=== PATIENT | male | born 1980 | race Caucasian/White ===

== ENCOUNTER 2019-04-10 17:04 | Emergency (ER) | payer OTHER ==
[2019-04-10 17:16] VITALS: BP 129/90
[2019-04-10] MEDS ORDERED: HYDROcod/ACETAM 5/325 MG TABLET PO STA (17:22)
--- NOTE | 2019-04-10 17:25 | ED Physician Documentation ---
PD HPI LOWER EXT INJURY - Stated complaint Stated Complaint: R CALF INJ - Chief complaint Chief Complaint: Ext Problem - History obtained from History obtained from: Patient - History of Present Illness PD HPI LOW EXT INJURY LOCATION: Right (Playing tennis today and felt a pop in the posterior right ankle while running. Now cannot walk except for shuffling. Pain is moderate to severe. No other injuries. No recent antibiotics.) Review of Systems Constitutional: reports: Reviewed and negative Cardiac: reports: Reviewed and negative Respiratory: reports: Reviewed and negative PD PAST MEDICAL HISTORY - Past Medical History Past Medical History: No - Past Surgical History Past Surgical History: Yes - Present Medications Home Medications: Ambulatory Orders Medication Instructions Recorded Confirmed Hydrocodone/Acetaminophen 1 - 2 each PO Q6H PRN #14 tablet 04/10/19 [Hydrocodon-Acetaminophen 5-325] Knee Scooter 1 unit TD ONCE #1 04/10/19 - Allergies Allergies/Adverse Reactions: Allergies Allergy/AdvReac Type Severity Reaction Status Date / Time No Known Drug Allergies Allergy Verified 04/10/19 17:12 - Social History Does the pt smoke?: No Smoking Status: Never smoker PD ED PE NORMAL - Vitals Vital signs reviewed: Yes - General General: Alert and oriented X 3, No acute distress - Extremities Extremities: Other (The calf and the calcaneus are nontender, he does not have any action with Felton's test. He has a obvious palpable defect in the right Achilles tendon.) - Neuro Neuro: Alert and oriented X 3, Normal speech Results - Vitals Vitals: Vital Signs - 24 hr 04/10/19 17:12 Temperature 36.7 C Heart Rate 72 Respiratory 19 Rate Blood Pressure 129/90 H O2 Saturation 100 Oxygen O2 Source Room air Procedures - Splint (location) R leg Splint applied by: Tech Type of splint: Fiberglass, Short leg, Posterior, Other (in slight plantarflexion) Other: Patient tolerated well, No complications, Neurovascular intact, Crutches provided Departure - Departure Disposition: 01 Home, Self Care Clinical Impression: Achilles rupture, right Qualifiers: Encounter type: initial encounter Qualified Code(s): S86.011A - Strain of right Achilles tendon, initial encounter Condition: Good Record reviewed to determine appropriate education?: Yes Health Concerns: Right leg injury, clinical right achilles tendon rupture Plan of Treatment: Splint in flexion. Followup with Dr Idjadi in clinic, non weight bearing. Care Goals: Improve function. Assessment: as above Instructions: ED Tendon Rupture Achilles Follow-Up: Yordy Hair MD [Provider Admit Priv/Credential] - Prescriptions: Hydrocodone/Acetaminophen [Hydrocodon-Acetaminophen 5-325] 1 - 2 each PO Q6H PRN #14 tablet PRN Reason: pain Knee Scooter 1 unit TD ONCE #1 Forms: Activity restrictions
[2019-04-10] MEDS ORDERED: HYDROcod/ACET 5/325 Prepack 4 PO STA (18:06)
== END 2019-04-10 18:21 | disposition home or self-care (01) ==
LOC: ED 17:04
DX: S86.011A Strain of right Achilles tendon, initial encounter (principal); X58.XXXA Exposure to other specified factors, initial encounter; Y93.59 Activity, other involving other sports and athletics played individually
CPT/HCPCS: 29515; 99283; A9270

== ENCOUNTER 2019-04-17 11:02 | Day surgery (SDC) | payer OTHER ==
[~2019-04-17 11:02] MED LIST: BRIMONIDINE 0.2% OPHTH DROPS 5 ML ONE; BSS/LIDOCAINE/EPINEPHRINE 1 ML SYRINGE ONE; TIMOLOL 0.5% OPHTH DROPS ONE; TRIAMCIN/MOXIFLOX OPHTHALMIC 0.6 ML VIAL IO ONE; VANCOMYCIN OPHTHALMI 8MG/0.8ML 8 MG/0.8 ML SYRINGE IO ONE
[2019-04-17] MEDS ORDERED: CEFAZOLIN SODIUM IN 0.9 % NACL 2 GM/100 ML BAG IV ONE (11:39)
[2019-04-17] MEDS ORDERED: LACTATED RINGERS 1,000 ML IV ONE ×2 (11:41→13:09)
--- NOTE | 2019-04-17 11:54 | ANESTHESIA ---
Pre-Anesthesia VS, & Labs - Diagnosis right achilles tendon rupture - Procedure open repair of right achilles tendon rupture Vital Signs: Temp Pulse Resp BP Pulse Ox 36.4 C L 76 18 118/70 100 04/17/19 11:05 04/17/19 11:05 04/17/19 11:05 04/17/19 11:05 04/17/19 11:05 Height 6 ft 3 in Weight (kg) 92.2 kg Body Mass Index 25.0 - NPO >8 hours Home Medications and Allergies Home Medications: Ambulatory Orders Fluticasone [Flonase] 1 sprays JONATHAN DAILY 04/15/19 oxyCODONE/ACET 5/325 [Percocet 5 mg/325 mg] 1 - 2 each PO Q4-6H 04/15/19 Fluticasone [Flonase] 1 sprays JONATHAN DAILY 04/15/19 oxyCODONE/ACET 5/325 [Percocet 5 mg/325 mg] 1 - 2 each PO Q4-6H 04/15/19 Allergies/Adverse Reactions: Allergies Allergy/AdvReac Type Severity Reaction Status Date / Time No Known Drug Allergies Allergy Verified 04/10/19 17:12 Anes History & Medical History - Anesthetic History Family history of Anesthesia Complications: Denies Family history of Malignant Hyperthermia: Denies - Medical History Cardiovascular: reports: None Pulmonary: reports: None Gastrointestinal: reports: None Urinary: reports: None Neuro: reports: None Musculoskeletal: reports: None Endocrine/Autoimmune: reports: None Blood Disorders: reports: None Skin: reports: None Smoking Status: Never smoker Psychosocial: reports: No issues indicated Exam General: Alert, Oriented x3, Cooperative, No acute distress Dental: WNL Mouth Openin Fingerbreadth Neck Mobility: Normal Mallampati classification: II Thyromental Distance: greater than 6 cm Respiratory: Lungs clear, Normal breath sounds, No respiratory distress, No accessory muscle use Cardiovascular: Regular rate, Normal S1, Normal S2, No murmurs Mental/Cognitive Status: Alert/Oriented X3, Normal for patient Plan Anesthesia Type: General, Popliteal Block (right) Consent for Procedure(s) Verified and Reviewed: Yes Code Status: Attempt Resuscitation ASA classification: 1-Healthy patient Is this case an emergency?: No
[2019-04-17] MEDS ORDERED: MIDAZOLAM 2 MG/2 ML VIAL ONE (12:08)
[2019-04-17] MEDS ORDERED: DEXAMETHASONE 4 MG/ML VIAL ONE (12:11)
[2019-04-17] MEDS ORDERED: ONDANSETRON 4 MG/2 ML VIAL IVP ONE (12:30)
[2019-04-17] MEDS ORDERED: DEXAMETHASONE 4 MG/ML VIAL IVP ONE (12:30)
[2019-04-17] MEDS ORDERED: PROPOFOL 200 MG/20 ML VIAL IVP ONE (12:30)
[2019-04-17] MEDS ORDERED: fentaNYL 250 MCG/5 ML VIAL IVP ONE (12:30)
[2019-04-17] MEDS ORDERED: LIDOCAINE-MPF 2% 5 ML VIAL IM ONE (12:30)
--- NOTE | 2019-04-17 12:45 | ANESTHESIA PROCEDURE NOTE ---
Diagnosis: Right ruptured achilles tendon Procedure: Right popliteal nerve block Consent for Procedure(s) Verified and Reviewed: Yes Height and Weight: Height 6 ft 3 in Weight (kg) 92.2 kg Body Mass Index 25.0 Vital Signs: Temp Pulse Resp BP Pulse Ox 36.4 C L 76 18 118/70 100 04/17/19 11:05 04/17/19 11:05 04/17/19 11:05 04/17/19 11:05 04/17/19 11:05 Allergies No Known Drug Allergies Allergy (Verified 04/10/19 17:12) Requesting Provider: Dr. Mcgee Location: Right Leg ASA classification: 1-Healthy patient Is this case an emergency?: No Anes. Monitoring and Equipment: Non-invasive BP, Pulse oximetery, Sterile prep and drape Anes. Procedure Start Time: 12:05 Anes. Procedure Stop Time: 12:15 Procedure Notes: Patient was placed in a prone position and right posterior knee was prepped with chloroprep. Timeout completed. The sciatic nerve was identified under ultrasound and a 22G stimiplex needle was advanced. Twitch monitor was used with loss of dorsal flexion at 0.4 mA. A total of 30ml of 0.5% ropivicaine with 4mg decadron was injected around the nerve with adequate spread noted. Patient tolerated the procedure well. Full evaluation is pending.
[2019-04-17] MEDS ORDERED: BUPIVACAINE 0.25%-EPI 1:200000 PF 30 ML VIAL ONE (13:08)
[2019-04-17] MEDS ORDERED: BUPIVACAINE 0.25%-EPI 1:200000 PF 30 ML VIAL SUBQ ONE ×2 (13:08)
[2019-04-17] MEDS ORDERED: ACETAMINOPHEN 1,000 MG/100 ML 100 ML IV PRN (13:50)
[2019-04-17] MEDS ORDERED: MORPHINE 2 MG/ML CARPUJECT IVP PRN (13:50)
[2019-04-17] MEDS ORDERED: SODIUM CHLORIDE FLUSH 0.9% 10 ML SYRINGE IVP PRN (13:50)
[2019-04-17] MEDS ORDERED: ACETAMINOPHEN 325 MG TABLET PO PRN (13:50)
[2019-04-17] MEDS ORDERED: ONDANSETRON 4 MG/2 ML VIAL IVP PRN (13:50)
[2019-04-17] MEDS ORDERED: PROCHLORPERAZINE 10 MG/2 ML VIAL IVP PRN (13:50)
--- NOTE | 2019-04-17 13:57 | OPERATIVE REPORT ---
Operative Report - General Procedure Date: 04/17/19 Planned Procedure: Open repair of right Achilles tendon rupture Pre-Op Diagnosis: Acute right Achilles tendon rupture Procedure Performed: Open repair of right Achilles tendon rupture Post Op Diagnosis: Same - Procedure Note Primary Surgeon: Manuel Mcgee MD Anesthesia Provider: Selena Ramos CRNA Anesthesia Technique: Regional block IV Fluids (mL): 500 Estimated Blood Loss (mL): 25 Complications: None
[2019-04-17] MEDS ORDERED: ACETAMINOPHEN 1,000 MG/100 ML 100 ML IV ONE (14:28)
[2019-04-17] MEDS ORDERED: KETOROLAC 15 MG/ML VIAL ONE (14:28)
--- NOTE | 2019-04-17 14:34 | OPERATIVE REPORT ---
DATE OF SERVICE: 04/17/2019 Physician: Dion Mcgee MD PREOPERATIVE DIAGNOSIS: Acutely ruptured right Achilles tendon. POSTOPERATIVE DIAGNOSIS: Acutely ruptured right Achilles tendon. PROCEDURE PERFORMED: Open repair of a right ruptured Achilles tendon. SURGEON: Dion Mcgee MD ANESTHESIA: General with a popliteal nerve block. DESCRIPTION OF PROCEDURE: Patient was taken to the operating room on the afternoon of 04/17/2019, wh ere he was given a popliteal nerve peripheral block. He was then placed in light sedation for the pr ocedure. He remained positioned supine. His leg was then prepped and draped in the usual fashion fo r our procedure. Putting the right leg in a crisscross, cross-legged position, we were able to acces s the medial aspect of his distal calf in the vicinity of his posterior ankle. A longitudinal skin i ncision was then made a fingerbreadth anterior to the Achilles tendon in the vicinity of his palpable defect in his Achilles tendon. After incising the incision, we noted that the tendon sheath appeare d to be intact overlying his Achilles tendon. This was then sharply incised and we were then able to expose the ruptured Achilles tendon. At this point, we then proceeded to put a zigzag [place] type stitch with 0 Ethibond, using a swedged-on needle that came with the suture, as well as a curved free needle. On the distal end of our Achilles tendon rupture, we then used the same suture with the swe dged-on needle and did a modified Sheth-type stitch to grab the distal end. We then proceeded to a ppose the 2 ruptured ends of the Achilles tendon, tying a snug knot with the ends apposed to each oth er. Satisfied with the reduction and the fixation of our tendon repair, we then used 2-0 Vicryl to c lose the tendon sheath incision. Finally, 2-0 Vicryl in a buried simple fashion was then used to carlito roximate the subcutaneous tissues. Skin dorothea were used to approximate the skin edges; 12 mL of 0. 25% Marcaine with epinephrine was then used to provide surgical incision site local anesthesia. The tourniquet, which had been inflated to 350 mmHg just prior to the start of our incision, was then rel eased at this point. Tourniquet time was 40 minutes. Dressings that were applied to our wound inclu ded Xeroform gauze, sterile 4 x 4's, sterile Webril, and a short-leg posterior splint, with the ankle held in gravity equinus positioning as plaster splints were applied to the lower extremity. Patient was then transferred to the recovery room in satisfactory condition. ESTIMATED BLOOD LOSS: 25 mL REPLACEMENT: 500 mL of crystalloid. INTRAOPERATIVE COMPLICATIONS: None. PLAN: Patient will be discharged when comfortable. He will stay in his gravity equinus splint or ca st for approximately 6 weeks before gradually bringing his ankle up into a neutral position. TD: 04/17/2019 14:14
[2019-04-17 15:03] VITALS: BP 124/67
[2019-04-17] MEDS ORDERED: SODIUM CHLORIDE FLUSH 0.9% 10 ML SYRINGE IVP SCH (17:00)
--- NOTE | 2019-04-19 11:16 | PROVIDER PROGRESS NOTE ---
Subjective - Prog Note Date Prog Note Date: 04/17/19 Prog Note Time: 11:00 - Subjective Pt reports feeling: No change (Now 4 days s/p acute right Achilles tendon rupture occurring during a tennis match. Here for surgical repair in OR.) Objective - Vital Signs/Intake & Output Intake & Output: Intake & Output 04/16/19 04/17/19 04/18/19 04/19/19 23:59 23:59 23:59 23:59 Intake Total 1800 Balance 1800 - Other Results/Comments Other Results/Comments: EXAM: Cameron wrap over right ankle and calf. Palpable tender gap in right Achill es tendon. + Felton sx. N/V ok distally Assessment/Plan - Problem List (1) Achilles rupture, right Impression: Stable. Plan: Treatment options explained. He wishes to proceed with surgical repair. Risks and benefit of surgery explained; questions answered. Consent signed. Leg marked. Qualifiers: Encounter type: initial encounter Qualified Code(s): S86.011A - Strain of right Achilles tendon, initial encounter
== END 2019-04-17 11:03 | disposition home or self-care (01) ==
LOC: SDS 11:02
PROVIDERS: ATTEND Orthopaedic Surgery
PROC: 3E0T3BZ Introduction of Anesthetic Agent into Peripheral Nerves and Plexi, Percutaneous Approach (ICD-10-PCS; 2019-04-17)
PROC: 3E0T33Z Introduction of Anti-inflammatory into Peripheral Nerves and Plexi, Percutaneous Approach (ICD-10-PCS; 2019-04-17)
PROC: 0LQN0ZZ Repair Right Lower Leg Tendon, Open Approach (ICD-10-PCS; principal; 2019-04-17 12:00)
DX: S86.011A Strain of right Achilles tendon, initial encounter (principal)
CPT/HCPCS: 27650; J0131; J0690; J3010; J7120

== ENCOUNTER 2020-04-12 10:28 | Outpatient (CLI) | payer OTHER | END 2020-04-12 10:29 | disposition home or self-care (01) | LOC: LAB 10:28 | PROVIDERS: ATTEND Physician Assistant | DX: R05 Cough (principal); R53.83 Other fatigue; Z20.828 Contact with and (suspected) exposure to other viral communicable diseases | CPT/HCPCS: 81599 ==

== ENCOUNTER 2020-12-12 08:00 | Outpatient (CLI) | payer OTHER ==
[2020-12-12 21:53] LABS: CHLAMYDIA TRACHOMATIS DNA NEGATIVE (NEGATIVE); NEISSERIA GONORRHOEAE DNA NEGATIVE (NEGATIVE)
== END 2020-12-12 23:59 | disposition home or self-care (01) ==
LOC: LAB.N 08:00
PROVIDERS: ATTEND Physician Assistant Medical
DX: N41.9 Inflammatory disease of prostate, unspecified (principal)
CPT/HCPCS: 87491; 87591; 87661

== ENCOUNTER 2022-09-19 13:24 | Outpatient (CLI) | payer OTHER ==
--- NOTE | 2022-09-19 18:36 | XRAY Report ---
PROCEDURE: Shoulder 3 View LT INDICATIONS: L SHOULDER PX TECHNIQUE: 3 views of the shoulder were acquired. COMPARISON: None. FINDINGS: Bones: No fractures or dislocations. No suspicious bony lesions. Visualized ribs appear intact. M oderate glenohumeral joint space narrowing present. No marginal osteophyte or subchondral sclerosis Soft tissues: No suspicious soft tissue calcifications. IMPRESSION: Moderate glenohumeral joint space narrowing without osteophyte Reviewed by: Arturo Alcala MD on 09/19/2022 5:34 PM AKST Approved by: Arturo Alcala MD on 09/19/2022 5:34 PM AKST Station ID: [id number]
== END 2022-09-19 13:25 | disposition home or self-care (01) ==
LOC: DI.N 13:24
PROVIDERS: ATTEND Physician Assistant
DX: M25.812 Other specified joint disorders, left shoulder (principal)